=== PATIENT | male | born 1940 | race Caucasian/White ===

== ENCOUNTER 2016-12-12 07:33 | Emergency (ER) | payer MEDICARE ==
[2016-12-12] MEDS ORDERED: KETOROLAC 60 MG/2 ML VIAL IVP STA (07:55)
[2016-12-12] MEDS ORDERED: SODIUM CHLORIDE 0.9% 500 ML IV ONE (07:55)
--- NOTE | 2016-12-12 08:07 | ED ---
General Adult HPI - General Chief complaint: Abdominal Pain Stated complaint: kidney stones Time Seen by Provider: 12/12/16 07:35 Source: patient, RN notes reviewed Mode of arrival: ambulatory Limitations: no limitations - History of Present Illness Initial comments: This is a 76-year-old male presents emergency department with past medical history significant for kidney stones. Patient states he woke up this morning with some right lower quadrant pain. Patient states the pain was intermittent and severe at times. Patient states it became so severe he started vomiting. Patient states once he arrived the emergency department settled into the bed he noted that the pain went away completely. Patient states currently he is pain- free. He is no longer nauseated. Patient denies any fever or chills. Patient denies any diarrhea. Patient denies any chest pain difficulty breathing or shortness of breath. Patient denies any back pain. Patient states the pain did not appear to radiate. Patient denies any hematuria. - Related Data Home Medications Medication Instructions Recorded Confirmed Allopurinol [Zyloprim] 300 mg PO HS 12/12/16 12/12/16 Aspirin EC [Ecotrin Low Dose] 81 mg PO HS 12/12/16 12/12/16 Atenolol [Tenormin] 50 mg PO DAILY 12/12/16 12/12/16 Losartan [Cozaar] 25 mg PO HS 12/12/16 12/12/16 [place] Q-10 Plus 1 cap PO DAILY 12/12/16 12/12/16 Pravastatin Sodium [Pravachol] 20 mg PO HS 12/12/16 12/12/16 Triamterene-Hctz 37.5-25Mg 1 cap PO DAILY 12/12/16 12/12/16 [Dyazide 37.5-25 Capsule] metFORMIN HCL [Glucophage] 500 mg PO DAILY 12/12/16 12/12/16 Previous Rx's Medication Instructions Recorded Hydrocodone/Acetaminophen [Brundidge 1 each PO Q4HR PRN #20 tab 12/12/16 5-325] Ketorolac [Toradol] 10 mg PO Q6HR #15 tab 12/12/16 Allergies Allergy/AdvReac Type Severity Reaction Status Date / Time No Known Allergies Allergy Verified 12/12/16 07:58 Review of Systems ROS Statement: Those systems with pertinent positive or pertinent negative responses have been documented in the HPI. ROS Other: All systems not noted in ROS Statement are negative. Past Medical History Past Medical History: Coronary Artery Disease (CAD), Chest Pain / Angina, Hyperlipidemia History of Any Multi-Drug Resistant Organisms: None Reported Past Surgical History: Coronary Bypass/CABG, Tonsillectomy Past Psychological History: No Psychological Hx Reported Smoking Status: Former smoker Past Alcohol Use History: None Reported Past Drug Use History: None Reported General Exam - General Exam Comments Initial Comments: GENERAL: Patient is well-developed and well-nourished. Patient is nontoxic and well- hydrated and is in mild distress. ENT: Neck is soft and supple. No significant lymphadenopathy is noted. Oropharynx is clear. Moist mucous membranes. Neck has full range of motion without eliciting any pain. EYES: The sclera were anicteric and conjunctiva were pink and moist. Extraocular movements were intact and pupils were equal round and reactive to light. Eyelids were unremarkable. PULMONARY: Unlabored respirations. Good breath sounds bilaterally. No audible rales rhonchi or wheezing was noted. CARDIOVASCULAR: There is a regular rate and rhythm without any murmurs gallops or rubs. ABDOMEN: Soft and nontender with normal bowel sounds. No palpable organomegaly was noted. There is no palpable pulsatile mass. SKIN: Skin is clear with no lesions or rashes and otherwise unremarkable. NEUROLOGIC: Patient is alert and oriented x3. Cranial nerves II through XII are grossly intact. Motor and sensory are also intact. Normal speech, volume and content. Symmetrical smile. MUSCULOSKELETAL: Normal extremities with adequate strength and full range of motion. No lower extremity swelling or edema. No calf tenderness. LYMPHATICS: No significant lymphadenopathy is noted PSYCHIATRIC: Normal psychiatric evaluation. Normal interpersonal interactions appears functionally intact in deals appropriately with others. No signs of depression. No signs of anxiety. Limitations: no limitations Course Vital Signs 12/12/16 07:36 Temperature 98.1 F Pulse Rate 60 Respiratory 20 Rate Blood Pressure 189/103 O2 Sat by Pulse 100 Oximetry Medical Decision Making - Medical Decision Making CAT scan showed a stone in the was in the bladder that probably a past. Patient also had a stone in the left ureter however he had no symptoms of the left ureter. Patient states since she's been emergency department he has been pain-free. - Lab Data Result diagrams: 12/12/16 07:59 12/12/16 07:59 Lab Results 12/12/16 12/12/16 12/12/16 Range/Units 07:59 07:59 07:59 WBC 8.4 (3.8-10.6) k/uL RBC 4.80 (4.30-5.90) m/uL Hgb 15.2 (13.0-17.5) gm/dL Hct 42.2 (39.0-53.0) % MCV 88.0 (80.0-100.0) fL MCH 31.6 (25.0-35.0) pg MCHC 35.9 (31.0-37.0) g/dL RDW 13.6 (11.5-15.5) % Plt Count 208 (150-450) k/uL Neutrophils % 76 % Lymphocytes % 17 % Monocytes % 4 % Eosinophils % 0 % Basophils % 1 % Neutrophils # 6.4 (1.3-7.7) k/uL Lymphocytes # 1.4 (1.0-4.8) k/uL Monocytes # 0.3 (0-1.0) k/uL Eosinophils # 0.0 (0-0.7) k/uL Basophils # 0.1 (0-0.2) k/uL Sodium 140 (137-145) mmol/L Potassium 4.2 (3.5-5.1) mmol/L Chloride 100 (98-107) mmol/L Carbon Dioxide 24 (22-30) mmol/L Anion Gap 16 mmol/L BUN 21 H (9-20) mg/dL Creatinine 1.05 (0.66-1.25) mg/dL Est GFR (MDRD) Af Amer >60 (>60 ml/min/1.73 sqM) Est GFR (MDRD) Non-Af >60 (>60 ml/min/1.73 sqM) Glucose 280 H (74-99) mg/dL Calcium 9.8 (8.4-10.2) mg/dL Total Bilirubin 1.6 H (0.2-1.3) mg/dL AST 34 (17-59) U/L ALT 56 (21-72) U/L Alkaline Phosphatase 62 (38-126) U/L Total Protein 8.0 (6.3-8.2) g/dL Albumin 4.6 (3.5-5.0) g/dL Amylase 48 (30-110) U/L Lipase 43 (23-300) U/L Urine Color Yellow Urine Appearance Clear (Clear) Urine pH 5.5 (5.0-8.0) Ur Specific [place] 1.009 (1.001-1.035) Urine Protein Negative (Negative) Urine Glucose (UA) Negative (Negative) Urine Ketones Trace H (Negative) Urine Blood Moderate H (Negative) Urine Nitrate Negative (Negative) Urine Bilirubin Negative (Negative) Urine Urobilinogen <2.0 (<2.0) mg/dL Ur Leukocyte Esterase Negative (Negative) Urine RBC 148 H (0-5) /hpf Urine WBC 5 (0-5) /hpf Urine Bacteria Rare H (None) /hpf Urine Mucus Rare H (None) /hpf Urine Sperm Rare (None) /hpf Disposition Clinical Impression: Kidney stone Disposition: HOME SELF-CARE Condition: Good Instructions: Kidney Stones (ED) Prescriptions: Hydrocodone/Acetaminophen [Brundidge 5-325] 1 each PO Q4HR PRN #20 tab PRN Reason: Pain Ketorolac [Toradol] 10 mg PO Q6HR #15 tab Referrals: Casey Grover MD [Primary Care Provider] - 1-2 days Time of Disposition: 09:39
[2016-12-12 08:18] LABS: Basophils # (A) 0.1 k/uL (0-0.2); Basophils % (A) 1 %; CH 31.5; Eosinophils % (A) 0 %; HCT 42.2 % (39.0-53.0); HDW 3.07; HGB 15.2 gm/dL (13.0-17.5); Luc # (Auto) 0.12; Luc % (Auto) 2; Lymphocytes # (A) 1.4 k/uL (1.0-4.8); Lymphocytes % (A) 17 %; MCH 31.6 pg (25.0-35.0); MCHC 35.9 g/dL (31.0-37.0); Mean Platelet Volume 7.3; Monocytes # (A) 0.3 k/uL (0-1.0); Monocytes % (A) 4 %; Neutrophils # (A) 6.4 k/uL (1.3-7.7); Neutrophils % (A) 76 %; RDW 13.6 % (11.5-15.5); WBC 8.4 k/uL (3.8-10.6)
[2016-12-12 08:27] LABS: ALT 56 U/L (21-72); AST 34 U/L (17-59); Alkaline Phosphatase 62 U/L (38-126); Amylase 48 U/L (30-110); Anion Gap 16 mmol/L; Appearance,Urine Clear (Clear); Bacteria,Urine Rare /hpf; Bilirubin,Urine Negative (Negative); Blood Urea Nitrogen 21 mg/dL (9-20); Calcium 9.8 mg/dL (8.4-10.2); Carbon Dioxide 24 mmol/L (22-30); Chloride 100 mmol/L (98-107); Glucose 280 mg/dL (74-99); Glucose,Urine (UA) Negative (Negative); Ketones,Urine Trace (Negative); Leukocyte Esterase,Urine Negative (Negative); Mucus,Urine Rare /hpf; Nitrite,Urine Negative (Negative); Non-African American GFR(MDRD) >60 (>60 ml/min/1.73 sqM); PH, Urine 5.5 (5.0-8.0); Particle Count 2457; Potassium 4.2 mmol/L (3.5-5.1); Protein,Urine Negative (Negative); RBC,Urine 148 /hpf (0-5); Sodium 140 mmol/L (137-145); Specific Gravity,Urine 1.009 (1.001-1.035); Sperm,Urine Rare /hpf; Total Bilirubin 1.6 mg/dL (0.2-1.3); UA Billing (MACRO vs. MICRO) MICRO; Urobilinogen,Urine <2.0 mg/dL (<2.0); WBC,Urine 5 /hpf (0-5)
--- NOTE | 2016-12-12 08:37 | XR ---
EXAMINATION TYPE: XR KUB DATE OF EXAM: 12/12/2016 8:31 AM COMPARISON: NONE HISTORY: Pain TECHNIQUE: Single supine KUB image of the abdomen is obtained FINDINGS: Small bowel demonstrates no evidence for dilatation or air fluid levels. Gas and fecal material is seen in non-distended colon. No convincing evidence for pneumoperitoneum. No unusual calcifications. The lung bases are clear. The osseous structures are intact. IMPRESSION: 1. Overall nonobstructive bowel gas pattern.
--- NOTE | 2016-12-12 08:46 | CT ---
EXAMINATION TYPE: CT abdomen pelvis wo con DATE OF EXAM: 12/12/2016 8:28 AM COMPARISON: NONE HISTORY: Rt abdomen pain CT DLP: 866.3 mGycm Automated exposure control for dose reduction was used. TECHNIQUE: Helical acquisition of images was performed from the lung bases through the pelvis. FINDINGS: LUNG BASES: Linear changes involving the left lower lobe suggestive of atelectasis. LIVER/GB: Heterogeneous pattern of liver. Areas of low attenuation suggests fatty infiltration. Areas of increased attenuation may represent focal fatty sparing could be evaluated with a dedicated CT ab domen pelvis with contrast on a short-term basis as clinically warranted.. PANCREAS: No significant abnormality is seen. SPLEEN: Small accessory spleen noted. ADRENALS: No significant abnormality is seen. KIDNEYS: 1. Left kidney demonstrates 3 calculi the largest measuring 5 mm but no hydronephrosis. 2. Right kidney demonstrates a single 3 mm mid pole calculus. No hydronephrosis. Although, there is m ild pelvic caliectasis. 3. Lack of contrast limits assessment for mass 4. Mid left ureteral 4 mm calculus. URINARY BLADDER: There is a 2 mm calcification along the posterior wall of the bladder. ADENOPATHY: None visualized. OSSEOUS STRUCTURES: Hypertrophic and degenerative change of the spine noted. BOWEL: Appendix not seen. Bowel gas pattern nonspecific. Small hiatal hernia noted.. OTHER: Fat-containing inguinal hernias noted. Aorta of normal caliber. Atherosclerotic change is note d IMPRESSION: 1. Bilateral nephrolithiasis with no hydronephrosis. There is a mid left ureteral calculus measuring short axis of 4 mm. 2. Tiny bladder calculi may represent a recently passed stone. Very minimal right-sided pelvocaliecta sis noted. No overt hydronephrosis. 3. Heterogeneous pattern of liver likely related to fatty infiltration with focal areas of fatty spar ing. Correlate with hepatic function studies. Postcontrast exam could be obtained in a short-term bas is.
[2016-12-12 09:48] VITALS: BP 123/56; PULSE 58; RESP 18; TEMP 97
== END 2016-12-12 09:48 | disposition home or self-care (01) ==
LOC: EC 07:33
DX: N20.2 Calculus of kidney with calculus of ureter (principal); I25.10 Atherosclerotic heart disease of native coronary artery without angina pectoris; E78.5 Hyperlipidemia, unspecified; Z87.891 Personal history of nicotine dependence; Z79.82 Long term (current) use of aspirin; Z79.899 Other long term (current) drug therapy; Z79.84 Long term (current) use of oral hypoglycemic drugs; Z86.79 Personal history of other diseases of the circulatory system; Z98.61 Coronary angioplasty status
CPT/HCPCS: 99284; 96374; 36415; 80053; 82150; 83690; 85025; 81001; 74000; 74176; J1885

== ENCOUNTER → 2016-12-25 | Outpatient (CLI) | payer MEDICARE ==
--- NOTE | 2016-12-25 11:37 | XR ---
EXAMINATION TYPE: XR KUB DATE OF EXAM: 12/25/2016 11:29 AM COMPARISON: 12/12/2016 HISTORY: Calculus of the ureter TECHNIQUE: One view abdominal series FINDINGS: The osseous structures are intact. Sclerosis involving the SI joints are noted as well as the inferio r pubic rami. There is a calcification adjacent to the L4 vertebral body on the left measuring a transverse diamete r of 5.4 mm.. Right kidney: There is a punctate calcification overlying the right mid pole kidney. Left kidney: There appear to be 3 calcifications overlying the left kidney the largest measuring 5 mm . Hypertrophic and degenerative change of the spine noted. IMPRESSION: 1. There is a calculus overlying the left transverse process of L4 measuring approximately 5 mm. This appears stable in position and size from the CT scan of 12/12/2016. 2. Bilateral nephrolithiasis as measured above.
== END | disposition home or self-care (01) ==
LOC: RADXRMAIN 11:15
PROVIDERS: ATTEND Urology
DX: N20.0 Calculus of kidney (principal)
CPT/HCPCS: 74000

== ENCOUNTER → 2017-01-09 | Outpatient (CLI) | payer MEDICARE ==
--- NOTE | 2017-01-09 11:45 | XR ---
Abdomen HISTORY: Left-sided kidney stone, calculus of ureter Frontal view of the abdomen on 2 images correlated to prior abdomen 25 December 2016, CT abdomen pelvis second December 2016 Calculus superimposed over the left transverse process of L4 is again noted measuring approximately 9 mm. Bilateral kidney stones are stable and subcentimeter in size. Patient is post median sternotomy. No evident pneumoperitoneum or bowel obstruction. IMPRESSION: Stable exam. Left ureteral calculus, bilateral nephrolithiasis
== END | disposition home or self-care (01) ==
LOC: RADXRMAIN 10:46
PROVIDERS: ATTEND Physician Assistant
DX: N20.1 Calculus of ureter (principal); N20.0 Calculus of kidney
CPT/HCPCS: 74000

== ENCOUNTER → 2018-09-02 | Outpatient (CLI) | payer MEDICARE ==
--- NOTE | 2018-09-02 16:04 | NM ---
EXAMINATION TYPE: NM stress cardiolite complete DATE OF EXAM: 09/02/2018 COMPARISON: NONE HISTORY: 78-year-old male without a cirrhotic heart disease TECHNIQUE: After the intravenous administration of 10.36 mCi Tc 99m Sestamibi - Rest images obtained 45 minutes post injection. The patient exercised using a SONDRA protocol and 1 minute prior to peak exercise was injected with 25.8 mCi Tc 99m Sestamibi - Stress images obtained 30 minutes post inject ion. FINDINGS: Targeted heart rate was not achieved during the performance of this study; 85% maximal heart rate was 122 BPM. The heart rate achieved was only 78%. PVCs were detected on EKG during the course of the st udy. The patient complained of chest pain and dizziness. Review of stress and rest SPECT images demonstrates possible small area of reversibility along the mi d anteroseptal wall. There is a moderate sized area of fixed perfusion abnormality along the inferior wall which appears slightly accentuated on stress imaging. This is corroborated on polar maps. Gated analysis shows normal wall motion with an estimated left ventricular ejection fraction of 69 %. TID is calculated at 1.1, within normal limits. IMPRESSION: 1. Suboptimal stress. 2. However, unable to exclude a small area of reversibility along the mid anteroseptal wall 3. Correlate for possible old infarct along the basilar inferior wall. Unable to exclude mild maida-in farct ischemia here.
--- NOTE | 2018-09-02 16:56 | EST ---
EXERCISE STRESS DATE OF SERVICE: 09/02/2018 AGE: 78 SEX: Male HT: 6'0" WT: 218 PROTOCOL: Cardiolite Osbaldo STAGE: II DURATION OF EXERCISE: 7:12 HEART RATE REST: 63 BLOOD PRESSURE REST: 131/79 MAXIMUM HEART RATE ACHIEVED: 113 MAXIMUM BLOOD PRESSURE: 184/80 85% MPHR: 122 100% MPHR: 144 METS: 7.7 INDICATIONS: Arteriosclerotic heart disease. Chest pain. CLINICAL INFORMATION: STRESS DATA: Pre-testing physical examination showed a heart rate of 63, pressure 131/79 mmHg. Baseline EKG showed sinus mechanism with T-wave inversion in inferolateral leads. The patient exercised on the treadmill according to Osbaldo protocol for a total of 7 minutes and achieved 7.7 METS with maximum heart rate of 113, which is about 78% of maximum predicted heart rate. Maximum blood pressure was 184/80 mmHg. Clinically the patient developed chest discomfort in response to exercise. The EKG did not show any significant ST or T-wave abnormalities concerning for ischemia. CONCLUSION: 1. Good exercise tolerance. 2. The patient achieved only 78% of maximum predicted heart rate. 3. Chest discomfort in response to exercise. 4. Normal EKG in response to exercise without any evidence of ST or T-wave abnormalities concerning for ischemia. 5. Please follow up on the Cardiolite portion separate report from Radiology Department. MMODL / IJN: [id number] /
== END | disposition home or self-care (01) ==
LOC: RADNMMAIN 07:40
PROVIDERS: ATTEND Internal Medicine
DX: I25.110 Atherosclerotic heart disease of native coronary artery with unstable angina pectoris (principal); E78.00 Pure hypercholesterolemia, unspecified; E11.9 Type 2 diabetes mellitus without complications
CPT/HCPCS: 93017; 78452; 93005; A9500